=== PATIENT | female | born 1965 | race Caucasian/White ===

== ENCOUNTER → 2019-08-25 | Outpatient (CLI) | payer BC ==
--- NOTE | 2019-08-25 11:21 | NM ---
EXAMINATION TYPE: NM stress cardiolite complete DATE OF EXAM: 08/25/2019 COMPARISON: NONE HISTORY: Chest pain TECHNIQUE: After the intravenous administration of 10.0 mCi Tc 99m Sestamibi - Rest images obtained 45 minutes post injection. The patient exercised using a MARILUZ protocol and 1 minute prior to peak exercise was injected with 24.6 mCi Tc 99m Sestamibi - Stress images obtained 20 minutes post injecti on. Patient achieved greater than 85% of predicted maximal heart rate. FINDINGS: Targeted heart rate was achieved during performance of the study. Review of stress and rest SPECT arley ges demonstrates no distinct perfusion abnormality. Gated analysis shows normal wall motion with an estimated left ventricular ejection fraction of 70%, question paradoxical apical wall motion. IMPRESSION: No scintigraphic evidence for reversible ischemia. Consider echocardiographic correlation for elevate d ejection fraction, possible paradoxical wall motion
--- NOTE | 2019-08-25 12:42 | EST ---
EXERCISE STRESS AGE: 53 SEX: Female HT: 5'3" WT: 137pounds PROTOCOL: Cardiolite treadmill STAGE: IV DURATION OF EXERCISE: 9 minutes 39 seconds HEART RATE REST: 64 BLOOD PRESSURE REST: 126/87 MAXIMUM HEART RATE ACHIEVED: 171 MAXIMUM BLOOD PRESSURE: 171/76 85% MPHR: 140 100% MPHR: 165 METS: 11.1 INDICATIONS: Chest pain. CLINICAL INFORMATION: STRESS DATA: Heart rate is 64, pressure is 126/87 mmHg. Baseline EKG showed sinus rhythm. The patient exercised on the treadmill according to Tavares protocol for a total of 9 minutes and 39 seconds and achieved 11.1 METs. Max heart rate was 171 which is about 100% of maximum predicted heart rate. Maximum blood pressure was 171/76 mmHg. Clinically the patient did not have no symptoms of chest pain or chest discomfort during the testing or on recovery and the EKG did not show any significant ST or T-wave abnormalities concerning for ischemia. CONCLUSION: 1. Excellent exercise tolerance. 2. Normal EKG in response to exercise. 3. Please follow up on the Cardiolite portion on separate report from Radiology Department. MMODL / IJN: [id number] /
== END | disposition home or self-care (01) ==
LOC: RADNMMAIN 07:46
PROVIDERS: ATTEND Family Medicine
DX: R07.89 Other chest pain (principal)
CPT/HCPCS: 93017; 78452; A9500

== ENCOUNTER 2024-03-01 07:19 | Day surgery (SDC) | payer OTHER ==
[2024-03-01 07:40] VITALS: RESP 14; TEMP 97.9
[2024-03-01] MEDS: LACTATED RINGERS 1,000 ML IV SCH (07:45)
[2024-03-01] MEDS: IV FLUID CONTINUATION 1,000 ML IV ONE (07:45)
[2024-03-01] MEDS ORDERED: PROPOFOL 10 MG/ML 20 ML VIAL IV ONE (09:16)
--- NOTE | 2024-03-01 09:28 | P.PCN ---
Date of Procedure: 03/01/24 Procedure(s) Performed: BRIEF HISTORY: Patient is a 58-year-old pleasant white female scheduled for an elective colonoscopy as a part of screening for colon cancer. PROCEDURE PERFORMED: Colonoscopy. PREOPERATIVE DIAGNOSIS: Screening for colon cancer. IV sedation per Anesthesia. PROCEDURE: After informed consent was obtained, the patient, was brought into the endoscopy unit. IV sedation was administered by Anesthesia under continuous monitoring. Digital rectal examination was normal. Initially the Olympus CF-160 flexible video colonoscope was then inserted in the rectum, gradually advanced into the cecum without any difficulty. Careful examination was performed as the scope was gradually being withdrawn. Ileocecal valve and the appendiceal orifice were visualized and appeared normal. Prep was excellent. Mucosa of the cecum, ascending colon, transverse colon, descending colon, sigmoid colon, and rectum appeared normal. Retroflexion was performed in the rectum and 2 internal hemorrhoids were seen. The patient tolerated the procedure well. 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 Grade 2 internal hemorrhoids. RECOMMENDATIONS: Findings of this examination were discussed with the patient as well as her family. She was advised to have repeat screening colonoscopy in .
[2024-03-01 09:49] VITALS: BP 112/76; PULSE 80
== END 2024-03-01 10:08 | disposition home or self-care (01) ==
LOC: ORWHC2ENDO 07:19
PROVIDERS: ATTEND Internal Medicine Gastroenterology
DX: Z12.11 Encounter for screening for malignant neoplasm of colon